=== PATIENT | male | born 1990 | race Two or more races ===

== ENCOUNTER 2018-07-13 15:23 | Emergency (ER) | payer OTHER ==
[~2018-07-13] VITALS: Ht 182.9 cm; Wt 99.8 kg
[2018-07-13 15:26] VITALS: BP 145/88
== END 2018-07-13 16:17 ==
LOC: ER 15:26
DX: S00.81XA Abrasion of other part of head, initial encounter (principal); F17.200 Nicotine dependence, unspecified, uncomplicated; F12.10 Cannabis abuse, uncomplicated; Z02.89 Encounter for other administrative examinations; W50.3XXA Accidental bite by another person, initial encounter; Y93.89 Activity, other specified; Y92.89 Other specified places as the place of occurrence of the external cause; Y99.8 Other external cause status
CPT/HCPCS: A6402